=== PATIENT | male | born 2000 | race Caucasian/White ===

== ENCOUNTER 2021-11-03 14:01 | Emergency (ER) | payer OTHER, SELFPAY ==
--- NOTE | 2021-11-03 14:12 | ED.URI ---
HPI - URI/Sore Throat General Chief Complaint: Upper Respiratory Infection Stated Complaint: sore throat, fever, congestion Time Seen by Provider: 11/03/21 14:18 Source: patient and RN notes reviewed Mode of arrival: ambulatory Limitations: no limitations History of Present Illness HPI Narrative: 20-year-old male presented for complaint of sore throat, onset yesterday. He endorses mild postnasal drainage and fever of 101 yesterday. He denies sinus pressure, nausea, vomiting, diarrhea, cough or shortness of breath. He has not taken anything for symptoms. He is vaccinated for COVID. He endorses his girlfriend is sick with sinus issues, she tested negative for strep, COVID, and flu. MD elicited complaint: sore throat Related Data Home Medications Medication Instructions Recorded Confirmed No Home Medications 11/03/21 11/03/21 Allergies Allergy/AdvReac Type Severity Reaction Status Date / Time No Known Allergies Allergy Verified 11/03/21 14:17 Review of Systems Review of Systems: CONSTITUTIONAL: Endorses fever EYES: Denies visual changes, redness, or discharge ENT: Endorses sore throat denies rhinorrhea, congestion CARDIOVASCULAR: Denies chest pain, palpitations, edema RESPIRATORY: Reports cough, post nasal drainage. Denies dyspnea GASTROINTESTINAL: Denies abdominal pain, nausea, vomiting, diarrhea SKIN: Denies rash or itching MUSCULOSKELETAL: Denies myalgia NEUROLOGIC: Denies headache Exam Narrative: GENERAL:well-appearing HEAD: Normocephalic EYES: conjunctivae clear ENT: Mucous membranes moist. TM pearly hunter with dull light reflex bilaterally; no tragal tenderness.Oropharynx erythematous without lesions or exudate, no drooling, no hoarseness, no trismus, uvula midline. No tripod positioning, muffled voice, soft palate or pharyngeal wall bulging NECK: Supple. No lymphadenopathy CHEST: Clear to auscultation, breath sounds equal. No wheezing, rhonchi, rales, or stridor. HEART: Regular rate and rhythm. No murmur heard. SKIN: Warm, dry, no rash. NEURO: Alert and oriented x3. PSYCH: Normal mood and affect Course Course Emergency Course: Patient is aware of diagnosis, understands and agrees to treatment plan. Anticipatory guidance given. Patient agrees to follow-up as directed and is aware of reasons to seek care at the emergency department. Portions of this record may have been created with voice recognition software Level of Care: Express Care Visit Vital Signs Vital signs: Vital Signs Temperature 98.2 F 11/03/21 14:14 Pulse Rate 92 11/03/21 14:14 Respiratory Rate 16 11/03/21 14:14 Blood Pressure 125/83 11/03/21 14:14 Pulse Oximetry 99 11/03/21 14:14 Temperature 98.2 F 11/03/21 14:14 Pulse Rate 92 11/03/21 14:14 Respiratory Rate 16 11/03/21 14:14 Blood Pressure 125/83 11/03/21 14:14 Pulse Oximetry 99 11/03/21 14:14 reviewed MDM - URI/Sore Throat MDM Narrative Medical decision making narrative: strep negative. flu neg. He is advised on supportive treatments. He is appropriate for outpt treatment and f/u. Differential Diagnosis Differential diagnosis: Likely upper respiratory infection, sinusitis and viral infection Lab Data Attestation: I reviewed the patient's lab results. Labs: Strep Screen Presumptive Negative *(Reference Range: Negative)* Discharge Plan Discharge Clinical Impression: Pharyngitis Qualifiers: Pharyngitis/tonsillitis etiology: unspecified etiology Qualified Code(s): J02.9 - Acute pharyngitis, unspecified Patient Disposition: Home, Self-Care Condition: Stable Instructions: Antibiotic Form Additional Instructions: Rapid strep swab was negative today You will be notified in a few days if the culture comes back positive for strep, and appropriate antibiotics will be called in at that time. if symptoms are due to a viral illness, it is not treated with antibiotics. Viral sy
[2021-11-03 14:14] VITALS: BP 125/83; PULSE 92; RESP 16; TEMP 36.8; O2SAT 99
== END 2021-11-03 14:42 | disposition home or self-care (01) ==
PROVIDERS: Emergency Provider Nurse Practitioner Family
DX: J02.9 Acute pharyngitis, unspecified (principal)
CPT/HCPCS: 87081; 87804; 87880; 99213; G0463

== ENCOUNTER 2022-06-05 15:17 | Emergency (ER) | payer OTHER, SELFPAY ==
[2022-06-05 15:23] VITALS: BP 139/89; PULSE 81; RESP 16; TEMP 37.3; O2SAT 100
--- NOTE | 2022-06-05 15:25 | ED.URI ---
HPI - URI/Sore Throat General Chief Complaint: Upper Respiratory Infection Stated Complaint: fever, bodyaches, headache Time Seen by Provider: 06/05/22 15:25 Source: patient Mode of arrival: ambulatory Limitations: no limitations History of Present Illness HPI Narrative: Trevor is a 21-year-old male patient presenting to clinic today with complaints of fever, body aches, and headache. He reports he started having symptoms Wednesday night. 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 MD elicited complaint: fever and other (Body aches and headache) Related Data Allergies Allergy/AdvReac Type Severity Reaction Status Date / Time No Known Allergies Allergy Verified 06/05/22 15:31 Review of Systems Review of Systems: Pertinent positives per HPI. Patient denies any rash, visual changes, dizziness, shortness of breath, chest pain, palpitations, nausea, vomiting, diarrhea, constipation, abdominal pain, or any urinary issues. PMFSH Comments At the time of my signature, I reviewed and agree with the nursing past medical, surgical, social, and family history. There is no relevant family history pertinent to the patient complaint. Exam Narrative: General: Well-developed, well nourished, in no apparent distress Head: Normocephalic, atraumatic Eyes: Pupils equally round and reactive to light bilaterally, EOM intact, sclera and conjunctive clear, no discharge, lids normal Ears: TMs intact and clear, ear canals clear, no drainage, grossly hearing normal. Nose: Nares patent, clear nasal discharge, no inflammation, no sinus tenderness. Mouth: Oral pharynx without lesions or masses, good dentition, MMM. Oropharynx red Neck: Supple, trachea midline, no enlargement of anterior or posterior cervical nodes, no thyroid masses or goiter palpable. Cardio: Regular rate and rhythm, s1 and s2 normal, no murmur appreciated. Resp: Clear to auscultation bilaterally, no rhonchi, rales, wheezing or rubs Course Course Emergency Course: Portions of this record may have been created with voice recognition software. Level of Care: Express Care Visit Vital Signs Vital signs: Vital Signs Temperature 37.3 C 06/05/22 15:23 Pulse Rate 81 06/05/22 15:23 Respiratory Rate 16 06/05/22 15:23 Blood Pressure 139/89 06/05/22 15:23 Pulse Oximetry 100 12/02/22 15:23 Oxygen Delivery Room Air 06/05/22 15:23 Temperature 37.3 C 06/05/22 15:23 Pulse Rate 81 06/05/22 15:23 Respiratory Rate 16 06/05/22 15:23 Blood Pressure 139/89 06/05/22 15:23 Pulse Oximetry 100 06/05/22 15:23 Oxygen Delivery Room Air 06/05/22 15:23 Vital signs reviewed MDM - URI/Sore Throat MDM Narrative Medical decision making narrative: At the time of visit patient is resting comfortably on the exam table. Influenza testing was completed and positive in the clinic for influenza A. Prescription for Tamiflu sent to the pharmacy and supportive measures were discussed with the patient he voiced understanding of discharge instructions and agrees to treatment plan. Differential Diagnosis Differential diagnosis: Likely upper respiratory infection, otitis media, sinusitis, viral infection, bronchitis, influenza, pharyngitis and other (COVID) Lab Data Labs: Influenza A Screen Positive Reference Range: Negative Influenza B Screen Negative Reference Range: Negative Discharge Plan Discharge Clinical Impression: Influenza A Patient Disposition: Home, Self-Care Condition: Stable Instructions: Antibiotic Form, Influenza (ED) Additional Instructions: Influenza testing was positive for influenza A in the clinic today Take prescription medications only as prescribed-Tamiflu May take DayQuil/NyQuil for cold/ flu symptoms Increase fluids and stay well hydrated Tylenol/motrin for pain/fever Flonase and OTC antihista
== END 2022-06-05 15:49 | disposition home or self-care (01) ==
PROVIDERS: Emergency Provider Nurse Practitioner Family
DX: J10.1 Influenza due to other identified influenza virus with other respiratory manifestations (principal)
CPT/HCPCS: 87804; 99213; G0463

== ENCOUNTER 2022-11-09 09:13 | Emergency (ER) | payer BC, SELFPAY ==
--- NOTE | ~2022-11-09 | XR_ITS ---
EXAMINATION: XR chest 2V DATE: 11/09/2022 09:49 INDICATION: Cough. Fever. Shortness of breath. TECHNIQUE: Frontal and lateral views of the chest were obtained on 3 radiographs. COMPARISON: None. FINDINGS: There is no pneumonia, pleural effusion, or pneumothorax. The heart size is normal. IMPRESSION: 1. No acute cardiopulmonary disease. Reviewed, dictated and finalized at location A.
--- NOTE | 2022-11-09 09:16 | ED.URI ---
HPI - URI/Sore Throat General Chief Complaint: Upper Respiratory Infection Stated Complaint: fever,cough,wheezing,headache Time Seen by Provider: 11/09/22 09:15 Source: patient Mode of arrival: ambulatory Limitations: no limitations History of Present Illness HPI Narrative: Mr. Tony is a 21-year-old male patient presenting to the clinic today with complaints fever, cough, wheezing, and headache x1 day. He reports he was positive for flu and COVID back in June and had similar symptoms. Highest temperature yesterday was 103? F. Does feel short of breath. Coughing up clear phlegm. Denies sore throat but does have some nasal congestion. MD elicited complaint: fever, cough, nasal congestion and other (Wheezing, headache) Related Data Home Medications Medication Instructions Recorded Confirmed bupropion HCl 150 mg 24 hr tablet, 150 mg PO QAM 11/09/22 11/09/22 extended release Allergies Allergy/AdvReac Type Severity Reaction Status Date / Time No Known Allergies Allergy Verified 11/09/22 09:23 Review of Systems Review of Systems: Pertinent positives per HPI. Patient denies any rash, visual changes, dizziness, chest pain, palpitations, nausea, vomiting, diarrhea, constipation, abdominal pain, or any urinary issues. PMFSH Comments At the time of my signature, I reviewed and agree with the nursing past medical, surgical, social, and family history. There is no relevant family history pertinent to the patient complaint. Exam Narrative: General: Well-developed, well nourished, in no apparent distress Head: Normocephalic, atraumatic Eyes: Pupils equally round and reactive to light bilaterally, EOM intact, sclera and conjunctive clear, no discharge, lids normal Ears: TMs intact and clear, ear canals clear, no drainage, grossly hearing normal. Nose: Nares patent, clear nasal discharge, no inflammation, no sinus tenderness. Mouth: Oral pharynx without lesions or masses, good dentition, MMM. Neck: Supple, trachea midline, no enlargement of anterior or posterior cervical nodes, no thyroid masses or goiter palpable. Cardio: Regular rate and rhythm, s1 and s2 normal, no murmur appreciated. Resp: Expiratory wheezing to the mid and lower lung mariee, no rhonchi, rales, or rubs Course Course Emergency Course: Portions of this record may have been created with voice recognition software. Level of Care: Express Care Visit Vital Signs Vital signs: Vital signs reviewed MDM - URI/Sore Throat MDM Narrative Medical decision making narrative: At the time of visit patient is resting comfortably on the exam table. COVID and influenza testing were performed and was negative in the clinic today. X-ray was negative for any sign of pneumonia. I suspect patient has viral bronchitis. Prescription for prednisone and albuterol inhaler was sent to the pharmacy and supportive measures were discussed with the patient and he voiced understanding discharge instructions and agrees to treatment plan Differential Diagnosis Differential diagnosis: Likely upper respiratory infection, otitis media, sinusitis, viral infection, bronchitis, influenza, pharyngitis and other (COVID) Imaging Data Radiologist's impression: [facility] [address] [place], [place] [id number] XRay Report Signed Patient: Trevor Tony : 2000 MR#: [id number] Age/Sex: 21 / M Acct:[id number] Loc: [facility]? ? ADM Date: 11/09/22Attending Dr: Ordering Physician: Lance Mendoza APRN Date of Service: 11/09/22 Procedure(s): XR chest 2V Accession Number(s): [id number] cc: Lance Mendoza APRN; UNKNOWN,DOCTOR~ EXAMINATION: XR chest 2V DATE: 11/09/2022 09:49 INDICATION: Cough. Fever. Shortness of breath. TECHNIQUE: Frontal and lateral views of the chest were obtained on 3 radiographs. COMPARISON: None. FINDINGS: There is no pneumonia, pleural effusio
[2022-11-09 09:22] VITALS: BP 131/93; PULSE 113; RESP 16; TEMP 36.6; O2SAT 98
[2022-11-09 09:24] VITALS: BP 131/93; PULSE 113; RESP 16; TEMP 36.6; O2SAT 98
[2022-11-09 09:29] VITALS: BP 131/93; PULSE 113; RESP 16; TEMP 36.6; O2SAT 98
== END 2022-11-09 10:07 | disposition home or self-care (01) ==
PROVIDERS: Emergency Provider Nurse Practitioner Family
DX: J40 Bronchitis, not specified as acute or chronic (principal); B34.9 Viral infection, unspecified; Z20.822 Contact with and (suspected) exposure to COVID-19; F32.A Depression, unspecified
CPT/HCPCS: 71046; 87426; 87804; 99213; C9803; G0463